=== PATIENT | male | born 1970 | race Caucasian/White ===

== ENCOUNTER 2017-06-29 13:10 | Emergency (ER) | payer BC ==
--- NOTE | 2017-06-29 13:59 | EDM.PDOC ---
ED HPI GENERAL MEDICAL PROBLEM - General Chief Complaint: Laceration Stated Complaint: CUT ON LEG Time Seen by Provider: 06/29/17 13:45 Source of Information: Reports: Patient History Limitations: Reports: No Limitations - History of Present Illness INITIAL COMMENTS - FREE TEXT/NARRATIVE: This 47 yo male patient was sent to the ED from [facility] by Dr. Feliciano due to laceration on his left lateral lower extremity. The patient reports he hit his leg on a cart this morning. The patient is on blood thinners for a blood clot in his right lower extremity. Onset: Today Duration: Hour(s): Location: Reports: Lower Extremity, Left Severity: Mild Improves with: Reports: None Worsens with: Reports: None Associated Symptoms: Reports: No Other Symptoms ED ROS GENERAL - Review of Systems Review Of Systems: ROS reveals no pertinent complaints other than HPI. ED EXAM, SKIN/RASH Exam: See Below Exam Limited By: No Limitations General Appearance: Alert, WD/WN, No Apparent Distress Eye Exam: Bilateral Eye: EOMI, Normal Inspection, PERRL Ears: Normal External Exam, Normal Canal, Hearing Grossly Normal, Normal TMs Nose: Normal Inspection, Normal Mucosa, No Blood Throat/Mouth: Normal Inspection, Normal Lips, Normal Teeth, Normal Gums, Normal Oropharynx, Normal Voice, No Airway Compromise Head: Atraumatic, Normocephalic Neck: Normal Inspection, Supple, Non-Tender, Full Range of Motion Respiratory/Chest: No Respiratory Distress, Lungs Clear, Normal Breath Sounds, No Accessory Muscle Use, Chest Non-Tender Cardiovascular: Normal Peripheral Pulses, Regular Rate, Rhythm, No Edema, No Gallop, No JVD, No Murmur, No Rub GI/Abdominal: Normal Bowel Sounds, Soft, Non-Tender, No Organomegaly, No Distention, No Abnormal Bruit, No Mass (Male) Exam: Deferred Rectal (Males) Exam: Deferred Back Exam: Normal Inspection, Full Range of Motion, NT Extremities: Normal Range of Motion, Non-Tender, No Pedal Edema, Normal Capillary Refill, Other (laceration left lateral leg) Neurological: Alert, Oriented, CN II-XII Intact, Normal Cognition, Normal Gait, Normal Reflexes, No Motor/Sensory Deficits Psychiatric: Normal Affect, Normal Mood Skin: Warm, Dry, Normal Color, No Rash, Wound/Incision Location, Skin: Lower Extremity, Left Characteristics: Linear Lymphatic: No Adenopathy Departure - Departure Time of Disposition: 13:54 Disposition: Home, Self-Care 01 Condition: Fair Clinical Impression: Laceration of left lower leg Qualifiers: Encounter type: initial encounter Qualified Code(s): S81.812A - Laceration without foreign body, left lower leg, initial encounter - Discharge Information Instructions: Laceration Care, Adult, [id number] Forms: ED Department Discharge Care Plan Goals: The patient was advised of the examination results during the visit. The patient 's wound was dressed with Steri-strips while in the ED. The patient was encouraged to continue to monitor the area for any increased bleeding. If the patient has any additional symptoms or concerns, the patient should follow-up with his primary care facility or return to the emergency department.
[2017-06-29 15:05] VITALS: BP 135/71
== END 2017-06-29 14:03 | disposition home or self-care (01) ==
LOC: DL.ED 13:10
DX: S81.812A Laceration without foreign body, left lower leg, initial encounter (principal); W22.8XXA Striking against or struck by other objects, initial encounter; D75.1 Secondary polycythemia
CPT/HCPCS: 36415; 85025; 99283

== ENCOUNTER 2019-01-01 04:49 | Emergency (ER) | payer BC ==
[2019-01-01 04:56] VITALS: BP 165/90
--- NOTE | 2019-01-01 05:38 | EDM.PDOC ---
ED HPI GENERAL MEDICAL PROBLEM - General Chief Complaint: Wound Recheck Stated Complaint: RT LEG BLEEDING Time Seen by Provider: 01/01/19 05:15 Source of Information: Reports: Patient, RN, RN Notes Reviewed History Limitations: Reports: No Limitations - History of Present Illness INITIAL COMMENTS - FREE TEXT/NARRATIVE: Pt to the ER with c/o bleeding from sores on the right leg. He states he has psoriasis. He states the sores on the leg began about 2 weeks ago. He states this morning he got up to shower and his right leg began to bleed all over the bathroom. He states he has been to the wound clinic in the past for open sores. He states they took 7 weeks to heal. Has had surgeries for varicosed veins in the past. Continues to smoke. Onset: Gradual Right Lower Leg Pain Score (Numeric/FACES): 7 - Related Data Allergies Allergy/AdvReac Type Severity Reaction Status Date / Time No Known Allergies Allergy Verified 01/01/19 04:56 Home Meds: Home Meds Apixaban [Eliquis] 5 mg PO BID 06/29/17 [History] Past Medical History Cardiovascular History: Reports: Blood Clots/VTE/DVT Dermatologic History: Reports: Psoriasis Social & Family History - Tobacco Use Smoking Status *Q: Current Every Day Smoker Years of Tobacco use: 35 Packs/Tins Daily: 1 Second Hand Smoke Exposure: Yes - Recreational Drug Use Recreational Drug Use: No ED ROS GENERAL - Review of Systems Review Of Systems: ROS reveals no pertinent complaints other than HPI. ED EXAM, SKIN/RASH Exam: See Below Exam Limited By: No Limitations General Appearance: Alert, WD/WN, No Apparent Distress Eye Exam: Bilateral Eye: EOMI, Normal Inspection Ears: Normal External Exam, Hearing Grossly Normal Nose: Normal Inspection Throat/Mouth: Normal Inspection, Normal Voice, No Airway Compromise Head: Atraumatic, Normocephalic Neck: Normal Inspection, Full Range of Motion Respiratory/Chest: No Respiratory Distress, Lungs Clear, Normal Breath Sounds, No Accessory Muscle Use, Chest Non-Tender Cardiovascular: Normal Peripheral Pulses, Regular Rate, Rhythm, No Edema, No Gallop, No JVD, No Murmur, No Rub Peripheral Pulses: 1+: Dorsalis Pedis (R), 2+: Radial (L), Radial (R) GI/Abdominal: Normal Bowel Sounds, Soft, Non-Tender (Male) Exam: Deferred Rectal (Males) Exam: Deferred Back Exam: Normal Inspection, Full Range of Motion Extremities: Other (open sores from mid owens down to just above the foot. ) Neurological: Alert, Oriented, Normal Cognition Psychiatric: Normal Affect, Normal Mood Skin: Warm, Dry, Other (Psoriasis, worse on extremities. Open sores with black granulation to the inner right lower leg. No drainage, not bleeding at this time. Denies pain. ) Location, Skin: Lower Extremity, Right Lymphatic: No Adenopathy Course - Vital Signs Last Recorded V/S: Last Vital Signs Temp 97 F 01/01/19 04:52 Pulse 97 01/01/19 04:52 Resp 18 01/01/19 04:52 BP 165/90 H 01/01/19 04:52 Pulse Ox 98 01/01/19 04:52 - Orders/Labs/Meds Orders: Active Orders 24 hr Category Date Time Status CULTURE WOUND [RM] Stat Lab 01/01/19 05:50 Ordered - Re-Assessments/Exams Free Text/Narrative Re-Assessment/Exam: 01/01/19 05:54 Wound dressed with wet to dry dressing and wrapped with cling wrap. Patient instructed that I would call the wound clinic in the morning to have them call him to set up follow up. Patient states understanding. It was stressed to the patient that it is very important that he begin working with the wound clinic for treatment for the wounds. Patient states understanding. Departure - Departure Time of Disposition: 05:45 Disposition: Home, Self-Care 01 Condition: Fair Clinical Impression: Venous stasis ulcer of calf with fat layer exposed with varicose veins Qualifiers: Laterality: right Qualified Code(s): I83.012 - Varicose veins of right lower extremity with ulcer of calf - Discharge Information *PRESCRIPTION DRUG MONITORING PROGRAM REVIEWED*: No *COPY OF PRESCRIPTION DRUG MONITORING REPORT IN PATIENT JUDD: No Instructions: Nonsurgical Procedures for Varicose Veins, Stasis Dermatitis Forms: ED Department Discharge Additional Instructions: You will be called in the morning to set up follow up with the wound clinic Take steps to stop smoking Keep area clean and dry, covered with wrap. - My Orders Last 24 Hours: My Active Orders 01/01/19 05:50 CULTURE WOUND [RM] Stat - Assessment/Plan Last 24 Hours: My Active Orders 01/01/19 05:50 CULTURE WOUND [RM] Stat
== END 2019-01-01 05:53 | disposition home or self-care (01) ==
LOC: DL.ED 04:49
DX: I83.012 Varicose veins of right lower extremity with ulcer of calf (principal); F17.210 Nicotine dependence, cigarettes, uncomplicated; Z79.899 Other long term (current) drug therapy
CPT/HCPCS: 87070; 87077; 87186; 99283

== ENCOUNTER → 2019-02-21 | Outpatient (CLI) | payer BC | LOC: DL.LAB 11:43 | PROVIDERS: ATTEND Internal Medicine Hematology & Oncology | DX: D75.1 Secondary polycythemia (principal); C34.32 Malignant neoplasm of lower lobe, left bronchus or lung | CPT/HCPCS: 36415; 85025 ==

== ENCOUNTER 2024-04-23 13:57 | Emergency (ER) | payer BC ==
[2024-04-23] MEDS ORDERED: Sodium Chloride 0.9% 10 ML Syringe FLUSH PRN (14:39)
[2024-04-23 14:58] VITALS: BP 145/92; PULSE 67
[2024-04-23 15:04] LABS: HEMATOCRIT 46.2 % (40.0-54.0); HEMOGLOBIN 14.9 g/dL (14.0-18.0); MEAN CORPUSCULAR HEMOGLOBIN 28.9 pg (27.0-34.0); MEAN CORPUSCULAR HGB CONC 32.3 g/dL (33.0-35.0); MEAN CORPUSCULAR VOLUME 89.5 fL (80-100); PLATELET COUNT,PLT 228 10^3/uL (150-450); RED BLOOD CELL COUNT 5.16 10^6/uL (4.6-6.2); WHITE BLOOD CELL COUNT,WBC 10.1 10^3/uL (5.0-10.0)
[2024-04-23 15:11] LABS: LYMPHOCYTES PERCENT AUTO 23.7 % (20.5-50.1); NEUTROPHILS PERCENT AUTO 53.5 % (42.2-75.2)
[2024-04-23 15:12] LABS: BASOPHILS PERCENT AUTO 0.8 % (0.0-1.0); EOSINOPHILS PERCENT AUTO 10.2 % (1.0-3.0); MONOCYTES PERCENT AUTO 11.8 % (2-8)
[2024-04-23 15:27] LABS: A/G RATIO 0.9; ALANINE AMINOTRANSFERASE,ALT 15 U/L (16-63); ALBUMIN 3.6 g/dL (3.4-5.0); ALKALINE PHOSPHATASE 86 U/L (46-116); ANION GAP 10.2 mEq/L (7-13); ASPARTATE AMNIOTRANSFERASE,AST 14 U/L (15-37); BILIRUBIN TOTAL 0.7 mg/dL (0.2-1.0); BLOOD UREA NITROGEN,BUN 13 mg/dL (7-18); BUN/CREATININE RATIO 11.3 (No establ ref range); C-REACTIVE PROTEIN 0.83 ng/dL (<=0.50); CALCIUM 8.9 mg/dL (8.5-10.1); CARBON DIOXIDE,CO2 30 mmol/L (21-32); CHLORIDE,CL 105 mmol/L (98-107); CREATININE 1.15 mg/dL (0.70-1.30); EST CRCL DRUG DOSING (CG) 94.93 mL/min; GLUCOSE RANDOM 91 mg/dL (70-99); POTASSIUM,K 4.2 mmol/L (3.5-5.1); PROTEIN TOTAL,TP 7.5 g/dL (6.4-8.2); SODIUM,NA 141 mmol/L (136-145)
[2024-04-23 15:29] LABS: ESTIMATED GFR 76 mL/min (>=60)
[2024-04-23 15:30] LABS: LACTIC ACID 0.9 mmol/L (0.4-2.0)
[2024-04-23 15:53] LABS: EOSINOPHILS PERCENT MAN 8 % (1-3); LYMPHOCYTES PERCENT MAN 21 % (20-50); MONOCYTES PERCENT MAN 15 % (2-8); SEG NEUTROPHILS PERCENT MAN 56 % (42-75)
== END 2024-04-23 15:55 | disposition home or self-care (01) ==
LOC: DL.ED 13:57
DX: I83.009 Varicose veins of unspecified lower extremity with ulcer of unspecified site (principal); L97.919 Non-pressure chronic ulcer of unspecified part of right lower leg with unspecified severity; L97.929 Non-pressure chronic ulcer of unspecified part of left lower leg with unspecified severity; Z79.01 Long term (current) use of anticoagulants; Z79.899 Other long term (current) drug therapy
CPT/HCPCS: 36415; 80053; 83605; 84145; 85025; 86140; 87040; 99283

== ENCOUNTER 2025-06-04 16:54 | Emergency (ER) | payer MEDICARE, MEDICAID ==
[2025-06-04 17:35] LABS: BASOPHILS PERCENT AUTO 1.3 % (0.0-1.0); EOSINOPHILS PERCENT AUTO 12.2 % (1.0-3.0); LYMPHOCYTES PERCENT AUTO 18.3 % (20.5-50.1); MONOCYTES PERCENT AUTO 14.7 % (2-8); NEUTROPHILS PERCENT AUTO 53.5 % (42.2-75.2); PLATELET COUNT,PLT 183 10^3/uL (150-450); RED BLOOD CELL COUNT 4.71 10^6/uL (4.6-6.2); WHITE BLOOD CELL COUNT,WBC 8.0 10^3/uL (5.0-10.0)
[2025-06-04 17:48] LABS: BLOOD UREA NITROGEN,BUN 25.0 mg/dL (7-18); CARBON DIOXIDE,CO2 30.0 mmol/L (21-32); CHLORIDE,CL 105.0 mmol/L (98-107); CREATININE 1.54 mg/dL (0.70-1.30); EST CRCL DRUG DOSING (CG) 69.24 mL/min; ESTIMATED GFR 53.0 mL/min (>=60); GLUCOSE RANDOM 152.0 mg/dL (70-99); POTASSIUM,K 4.2 mmol/L (3.5-5.1); SODIUM,NA 142.0 mmol/L (136-145)
[2025-06-04 17:58] LABS: B-TYPE NATRIURETIC PEPTIDE,BNP 15.0 pg/ml (0-100)
[2025-06-04 18:09] VITALS: BP 127/63; PULSE 85
== END 2025-06-04 18:20 | disposition home or self-care (01) ==
LOC: DL.ED 16:54
DX: E87.70 Fluid overload, unspecified (principal); I10 Essential (primary) hypertension; M19.90 Unspecified osteoarthritis, unspecified site; Z79.899 Other long term (current) drug therapy; Z79.01 Long term (current) use of anticoagulants
CPT/HCPCS: 36415; 80048; 83880; 85025; 99283